=== PATIENT | female | born 1950 | race Caucasian/White ===

== ENCOUNTER → 2016-12-16 | Day surgery (SDC) | payer OTHER ==
[2016-12-09 11:15] VITALS: Ht 152.4 cm; Wt 72.7 kg
[~2016-12-16] VITALS: Ht 152.4 cm; Wt 72.7 kg
[~2016-12-16] MED LIST: 500ML BSS 0.3ML EPI 1:1000PF IRRIG ONE; ACET-1256 PO; ACETAMINOPHEN 325 MG TAB PO PRN; ALBUAER INH; AMVISC PLUS 0.8ML SYRINGE INT OCU ONE; ASPCH81X PO; ATROPINE SULFATE 0.1 MG/ML 5ML SYR IV PRN; BENZ100C84 PO; BRIMONIDINE TART 0.2% OP SOLN PER DROP CHARGE ONE; BSS FLUSH ONE; CHOL200010 PO; CLB200 PO; CLR10 PO; CYCL10TA6 PO; ENDOCOAT 0.85ML SYRINGE INT OCU ONE; EpINEphrine INJ 1MG/ML AMP 1 MG/ML AMP ONE; FLUT0.15 NAE; LACTATED RINGER'S 1000ML 500 ML IV SCH; LIDOCAINE 4% OP SOLN DROP CHARGE ONE; LIDOCAINE 4% OP SOLN DROP CHARGE OPR SCH; LIDOCAINE HCL 1% MPF 2 ML VIAL ONE; LISI5TAB PO; LPR50X PO; MIDAZOLAM HCL 1 MG/ML 2ML VIAL ONE; MOXIFLOXACIN OPH SOLN PER DROP CHARGE ONE; OMEG10007 PO; POVIDONE-IODINE OP SOLN 30 ML BTL ONE; PRED1SUS3 OPR; PREG1CAP28 PO; PRLSR20 PO; PROPARACAINE 0.5% OP SOLN PER DROP CHARGE OPR SCH; TOBRAMYCIN/DEXAMETHASONE OPH OINT PER APPLN CHARGE ONE
[2016-12-16] MEDS: PHENYLEPHRINE HCL 2.5% OP SOLN PER DROP CHARGE OPR SCH ×2 (11:46→11:51)
[2016-12-16] MEDS: TROPICAMIDE 1% OP SOLN PER DROP CHARGE OPR SCH ×2 (11:47→11:52)
[2016-12-16] MEDS: CYCLOPENTOLATE HCL 1% OP SOLN PER DROP CHARGE OPR SCH ×2 (11:48→11:53)
[2016-12-16] MEDS: KETOROLAC 0.5% OP SOLN PER DROP CHARGE OPR SCH ×2 (11:49→11:54)
--- NOTE | 2016-12-16 11:49 | History & Physical Bridge - [place] ---
H&P Re-Evaluation Bridge Note: I have examined the patient, reviewed the History & Physical and in the interval since the performance of the History & Physical I have noted the following changes of clinical significance: No changes noted
[2016-12-16] MEDS: MOXIFLOXACIN OPH SOLN PER DROP CHARGE OPR SCH ×2 (11:50→12:00)
--- NOTE | 2016-12-16 12:40 | Discharge Instructions-SurgCtr ---
Discharge Instructions Date of Service Dec 16, 2016. Visit Reason for Visit: Right Cataract Discharge Discharge Diagnosis / Problem: cataract right eye Discharge Goals Goal(s): Improve function Activity Recommendations Activity Limitations: per Instructions/Follow-up section Lifting Limitations: no more than 5 pounds Anesthesia . Post Anesthesia Instructions: If you have had General Anesthesia or IV Sedation: * Do not drive today. * Resume driving when surgeon permits. * Do not make important decisions or sign legal documents today. * Call surgeon for: 1. Temperature elevations greater than 101 degrees F. 2. Uncontrollable pain. 3. Excessive bleeding. 4. Persistent nausea and vomiting. 5. Medication intolerance (nausea, vomiting or rash). * For nausea and vomiting use only clear liquids such as: tea, soda, bouillon until nausea subsides, then gradually increase diet as tolerated. * If you have any concerns or questions, call your surgeon's office. If physician is unavailable and it is an emergency, call 911 or go to the nearest emergency room. . Instructions / Follow-Up Instructions / Follow-Up ACTIVITY RECOMMENDATIONS: * Light activities * You may walk outside, read, watch television. * Mild irritation and blurred vision are common for the first few days, redness around the white part of the eye is common. MEDICATIONS: Resume previous medications unless instructed otherwise by your surgeon. Eye drops (today and tomorrow): Ofloxacin - one drop in operative eye every 2 hours while awake Prednisolone 1% - one drop in operative eye every 2 hours while awake Ketorolac - one drop in operative eye every 2 hours while awake SPECIAL CARE INSTRUCTIONS: * If any problems or concerns, please call Dr. Krishnan's office at . * Keep plastic shield taped over eye to sleep at night. * Keep plastic shield taped over eye except to administer eye drops. * Keep plastic shield on until office visit the following day. FOLLOW UP VISIT: Follow-up with Dr. Krishnan in the [place] office as scheduled. If not already scheduled, please call the office at . Diet Recommendations Home Diet: resume previous diet Procedures Procedures Performed: Right Cataract Phacoemulsification With Intraocular Lens Implant Pending Studies Studies pending at discharge: no Medical Emergencies . Who to Call and When: Medical Emergencies: If at any time you feel your situation is an emergency, please call 911 immediately. . Non-Emergent Contact Non-Emergency issues call your: Balloon Tester . . "Provider Documentation" section prepared by Oliver Krishnan. .
--- NOTE | 2016-12-16 12:40 | [facility] Post Operative Brief Note ---
Immediate Operative Summary Operative Date Dec 16, 2016. Pre-Operative Diagnosis Cataract right eye Post-Operative Diagnosis same Procedure(s) Performed Right Cataract Phacoemulsification With Intraocular Lens Implant Surgeon Dr Krishnan [employer] Surgeon(s) 0 Estimated Blood Loss 0 Findings cataract right eye Specimens 0 Complication(s) None Disposition Recovery Room / PACU
[2016-12-16 12:41] VITALS: TEMP 36.5
--- NOTE | 2016-12-16 12:48 | Anesthesia Progress Nt - [facility] ---
Anesthesia Post Op Note Date & Time Dec 16, 2016 at 12:47 Vital Signs Vital Signs Past 12 Hours Date Time Temp Pulse Resp B/P Pulse Ox O2 Delivery O2 Flow Rate FiO2 12/16/16 11:42 36.6 71 16 152/92 96 Room Air Notes Mental Status: alert / awake / arousable, participated in evaluation Pt Amnestic to Procedure: Yes Nausea / Vomiting: adequately controlled Pain: adequately controlled Airway Patency, RR, SpO2: stable & adequate BP & HR: stable & adequate Hydration State: stable & adequate Anesthetic Complications: no major complications apparent
[2016-12-16 13:20] VITALS: BP 145/82; PULSE 79; O2SAT 95
--- NOTE | 2016-12-16 14:21 | OPERATIVE REPORT ---
DATE OF OPERATION: 12/16/2016 PREOPERATIVE DIAGNOSIS: Cataract, right eye. POSTOPERATIVE DIAGNOSIS: Cataract, right eye. PROCEDURE: Phacoemulsification cataract extraction with intraocular lens Placement, right eye. SURGEON: Dr. Krishnan. COMPLICATIONS: None. ESTIMATED BLOOD LOSS: None. ANESTHESIA: Topical with sedation. OPERATION AND FINDINGS: After informed consent was obtained in the holding area the patient was wheeled back to the operating room where cardiac monitoring leads and oxygen by nasal cannula was administered by anesthesia. Gentle IV sedation was given, and the patient's right eye was prepped and draped in usual sterile fashion. A wire lid speculum was placed into the right eye and the operating microscope was swung into position. Using 0.12 forceps and a Supersharp blade a paracentesis port was made 3 o'clock hours away from the 9 o'clock position of patient's right eye. 1% non-preserved Lidocaine was then injected into the anterior chamber for anesthesia. A 2.2 mm keratotome blade was then used to make a shelved clear corneal incision at the 9 o'clock position of her right eye. Amvisc was injected into the anterior chamber and a cystotome and Utrata forceps were used to perform a curvilinear capsulorrhexis. BSS on a hydrodissection cannula was used to hydrodissect the lens nucleus away from the capsular bag. The phacoemulsification handpiece was then used in a stop and chop fashion to remove the lens nucleus. The irrigation and aspiration handpiece was then used to remove the residual cortical material. Amvisc was injected into the capsular bag and anterior chamber and a Bausch \T\ Lomb MX60 22.0 Diopter intraocular lens was injected into the capsular bag. Irrigation and aspiration handpiece was used to remove the residual viscoelastic material. The wounds were hydrated and noted to be watertight. The wire lid speculum was removed from the eye. Vigamox, Brimonidine, and TobraDex ointment were placed on the eye and it was shielded. It should be noted that EndoCoat was used during the case to protect the cornea endothelium. DISPOSITION: The patient tolerated the procedure well and was wheeled to the post anesthesia care unit in stable condition. I attest to the content of the Intraoperative Record and any orders documented therein. Any exceptions are noted below. I attest to the content of the Intraoperative Record and any orders documented therein. Any exceptio ns are noted below.
== END | disposition home or self-care (01) ==
LOC: X.SURG 11:30
PROVIDERS: ATTEND Ophthalmology
DX: H26.9 Unspecified cataract (principal); I10 Essential (primary) hypertension; J45.909 Unspecified asthma, uncomplicated; J44.9 Chronic obstructive pulmonary disease, unspecified; E66.9 Obesity, unspecified; Z88.1 Allergy status to other antibiotic agents; Z90.89 Acquired absence of other organs; Z83.3 Family history of diabetes mellitus

== ENCOUNTER → 2017-01-06 | Day surgery (SDC) | payer OTHER ==
[2016-12-31 08:20] VITALS: Ht 152.4 cm; Wt 72.7 kg
[~2017-01-06] VITALS: Ht 152.4 cm; Wt 72.7 kg
[~2017-01-06] MED LIST changes: +LIDOCAINE 4% OP SOLN DROP CHARGE OPL SCH; -LIDOCAINE 4% OP SOLN DROP CHARGE OPR SCH; +PROPARACAINE 0.5% OP SOLN PER DROP CHARGE OPL SCH; -PROPARACAINE 0.5% OP SOLN PER DROP CHARGE OPR SCH
[2017-01-06] MEDS: PHENYLEPHRINE HCL 2.5% OP SOLN PER DROP CHARGE OPL SCH ×2 (09:51→09:56)
[2017-01-06] MEDS: TROPICAMIDE 1% OP SOLN PER DROP CHARGE OPL SCH ×2 (09:52→09:57)
[2017-01-06] MEDS: CYCLOPENTOLATE HCL 1% OP SOLN PER DROP CHARGE OPL SCH ×2 (09:53→09:58)
[2017-01-06] MEDS: KETOROLAC 0.5% OP SOLN PER DROP CHARGE OPL SCH ×2 (09:54→09:59)
[2017-01-06] MEDS: MOXIFLOXACIN OPH SOLN PER DROP CHARGE OPL SCH ×2 (09:55→10:05)
--- NOTE | 2017-01-06 11:04 | Discharge Instructions-SurgCtr ---
Discharge Instructions Date of Service January 06, 2017. Visit Reason for Visit: Cataract Left Eye Discharge Discharge Diagnosis / Problem: cataract left eye Discharge Goals Goal(s): Improve function Activity Recommendations Activity Limitations: per Instructions/Follow-up section Lifting Limitations: no more than 5 pounds Anesthesia . Post Anesthesia Instructions: If you have had General Anesthesia or IV Sedation: * Do not drive today. * Resume driving when surgeon permits. * Do not make important decisions or sign legal documents today. * Call surgeon for: 1. Temperature elevations greater than 101 degrees F. 2. Uncontrollable pain. 3. Excessive bleeding. 4. Persistent nausea and vomiting. 5. Medication intolerance (nausea, vomiting or rash). * For nausea and vomiting use only clear liquids such as: tea, soda, bouillon until nausea subsides, then gradually increase diet as tolerated. * If you have any concerns or questions, call your surgeon's office. If physician is unavailable and it is an emergency, call 911 or go to the nearest emergency room. . Instructions / Follow-Up Instructions / Follow-Up ACTIVITY RECOMMENDATIONS: * Light activities * You may walk outside, read, watch television. * Mild irritation and blurred vision are common for the first few days, redness around the white part of the eye is common. MEDICATIONS: Resume previous medications unless instructed otherwise by your surgeon. Eye drops (today and tomorrow): Ofloxacin - one drop in operative eye every 2 hours while awake Prednisolone 1% - one drop in operative eye every 2 hours while awake SPECIAL CARE INSTRUCTIONS: * If any problems or concerns, please call Dr. Krishnan's office at . * Keep plastic shield taped over eye to sleep at night. * Keep plastic shield taped over eye except to administer eye drops. * Keep plastic shield on until office visit the following day. FOLLOW UP VISIT: Follow-up with Dr. Krishnan in the [place] office as scheduled. If not already scheduled, please call the office at . Diet Recommendations Home Diet: resume previous diet Procedures Procedures Performed: Left Cataract Phacoemulsification With Intraocular Lens Implant Pending Studies Studies pending at discharge: no Medical Emergencies . Who to Call and When: Medical Emergencies: If at any time you feel your situation is an emergency, please call 911 immediately. . Non-Emergent Contact Non-Emergency issues call your: Newspaper Library Manager . . "Provider Documentation" section prepared by Oliver Krishnan. .
--- NOTE | 2017-01-06 11:04 | [facility] Post Operative Brief Note ---
Immediate Operative Summary Operative Date January 06, 2017. Pre-Operative Diagnosis Left Eye Cataract Post-Operative Diagnosis Same Procedure(s) Performed Left Cataract Phacoemulsification With Intraocular Lens Implant Surgeon Dr Krishnan [employer] Surgeon(s) None Estimated Blood Loss 0ml Findings cataract left eye Specimens None Complication(s) None Disposition Recovery Room / PACU
[2017-01-06 11:05] VITALS: TEMP 36.4
[2017-01-06 11:23] VITALS: BP 128/85; PULSE 75; O2SAT 95
--- NOTE | 2017-01-06 11:26 | Anesthesia Progress Nt - [facility] ---
Anesthesia Post Op Note Date & Time January 06, 2017 at 11:26 Vital Signs Pain Intensity: 0 Vital Signs Past 12 Hours Date Time Temp Pulse Resp B/P Pulse Ox O2 Delivery O2 Flow Rate FiO2 01/06/17 11:23 75 18 128/85 95 Room Air 01/06/17 11:05 36.4 70 16 122/81 95 Room Air 01/06/17 09:45 36.4 69 18 150/88 95 Room Air Notes Mental Status: alert / awake / arousable, participated in evaluation Pt Amnestic to Procedure: Yes Nausea / Vomiting: adequately controlled Pain: adequately controlled Airway Patency, RR, SpO2: stable & adequate BP & HR: stable & adequate Hydration State: stable & adequate Anesthetic Complications: no major complications apparent
--- NOTE | 2017-01-06 12:35 | OPERATIVE REPORT ---
DATE OF OPERATION: 01/06/2017 PREOPERATIVE DIAGNOSIS: Cataract, left eye. POSTOPERATIVE DIAGNOSIS: Cataract, left eye. PROCEDURE: Phacoemulsification cataract extraction with intraocular lens placement, left eye. SURGEON: Dr. Krishnan. COMPLICATIONS: None. ESTIMATED BLOOD LOSS: None. ANESTHESIA: Topical with sedation. OPERATION AND FINDINGS: After informed consent was obtained in the holding area the patient was wheeled back to the Operating Room where cardiac monitoring leads and oxygen by nasal cannula was administered by Anesthesia. Gentle IV sedation was given, and the patient's left eye was prepped and draped in usual sterile fashion. A wire lid speculum was placed into the left eye and the operating microscope was swung into position. Using 0.12 forceps and a Supersharp blade a paracentesis port was made 3 o'clock hours away from the 3 o'clock position of patient's left eye. 1% non-preserved Lidocaine was then injected into the anterior chamber for anesthesia. A 2.2 mm keratotome blade was then used to make a shelved clear corneal incision at the 3 o'clock position of her left eye. Amvisc was injected into the anterior chamber and a cystotome and Utrata forceps were used to perform a curvilinear capsulorrhexis. BSS on a hydrodissection cannula was used to hydrodissect the lens nucleus away from the capsular bag. The phacoemulsification handpiece was then used in a stop and chop fashion to remove the lens nucleus. The irrigation and aspiration handpiece was then used to remove the residual cortical material. Amvisc was injected into the capsular bag and anterior chamber and a Bausch \T\ Lomb MX60 22.5 Diopter intraocular lens was injected into the capsular bag. Irrigation and aspiration handpiece was used to remove the residual viscoelastic material. The wounds were hydrated and noted to be watertight. The wire lid speculum was removed from the eye. Vigamox, Brimonidine, and TobraDex ointment were placed on the eye and it was shielded. It should be noted that EndoCoat was used throughout the case to protect the cornea endothelium. DISPOSITION: The patient tolerated the procedure well and was wheeled to the post anesthesia care unit in stable condition. I attest to the content of the Intraoperative Record and any orders documented therein. Any exceptions are noted below. I attest to the content of the Intraoperative Record and any orders documented therein. Any exceptions are noted below. MTDD
== END | disposition home or self-care (01) ==
LOC: X.SURG 09:35
PROVIDERS: ATTEND Ophthalmology
DX: H26.9 Unspecified cataract (principal); I10 Essential (primary) hypertension; J45.909 Unspecified asthma, uncomplicated; E66.9 Obesity, unspecified; Z85.828 Personal history of other malignant neoplasm of skin

== ENCOUNTER → 2017-06-09 | Outpatient (CLI) | payer OTHER ==
[~2017-06-09] MED LIST changes: -500ML BSS 0.3ML EPI 1:1000PF IRRIG ONE; -ACETAMINOPHEN 325 MG TAB PO PRN; -AMVISC PLUS 0.8ML SYRINGE INT OCU ONE; -ATROPINE SULFATE 0.1 MG/ML 5ML SYR IV PRN; -BRIMONIDINE TART 0.2% OP SOLN PER DROP CHARGE ONE; -BSS FLUSH ONE; -ENDOCOAT 0.85ML SYRINGE INT OCU ONE; -EpINEphrine INJ 1MG/ML AMP 1 MG/ML AMP ONE; -LACTATED RINGER'S 1000ML 500 ML IV SCH; -LIDOCAINE 4% OP SOLN DROP CHARGE ONE; -LIDOCAINE 4% OP SOLN DROP CHARGE OPL SCH; -LIDOCAINE HCL 1% MPF 2 ML VIAL ONE; -MIDAZOLAM HCL 1 MG/ML 2ML VIAL ONE; -MOXIFLOXACIN OPH SOLN PER DROP CHARGE ONE; -POVIDONE-IODINE OP SOLN 30 ML BTL ONE; -PROPARACAINE 0.5% OP SOLN PER DROP CHARGE OPL SCH; -TOBRAMYCIN/DEXAMETHASONE OPH OINT PER APPLN CHARGE ONE
[2017-06-09 14:52] LABS: BLOOD UREA NITROGEN 12 mg/dl (7-18); BUN/CREATININE RATIO 15.1 (10-20); CALCIUM 9.1 mg/dl (8.5-10.1); CARBON DIOXIDE 27 mmol/L (21-32); CHLORIDE 105 mmol/L (98-107); CREATININE 0.81 mg/dl (0.60-1.20); GLUCOSE 107 mg/dl (70-99); SODIUM 141 mmol/L (136-145)
[2017-06-09 14:59] LABS: ALT/SGPT 62 U/L (12-78); CHOLESTEROL 259 mg/dl (0-200); CHOLESTEROL/HDL RATIO 5.4; HDL CHOLESTEROL 48 mg/dl; TRIGLYCERIDES 149 mg/dl (0-150); VERY LOW DENSITY LIPOPROT CALC 30 mg/dl
== END | disposition home or self-care (01) ==
LOC: C.LABMFLN 07:50
PROVIDERS: ATTEND Family Medicine
DX: K76.0 Fatty (change of) liver, not elsewhere classified (principal); E78.5 Hyperlipidemia, unspecified; Z87.19 Personal history of other diseases of the digestive system; M15.9 Polyosteoarthritis, unspecified

== ENCOUNTER → 2017-07-23 | Outpatient (CLI) | payer OTHER | END | disposition home or self-care (01) | LOC: C.LABMFLN 12:34 | PROVIDERS: ATTEND Family Medicine | DX: J20.9 Acute bronchitis, unspecified (principal) ==

== ENCOUNTER → 2017-08-07 | Outpatient (CLI) | payer OTHER ==
[2017-08-09 17:35] LABS: BORDETELLA PERTUSSIS SOURCE Nasal Swab
== END | disposition home or self-care (01) ==
LOC: C.LABMFLN 09:48
PROVIDERS: ATTEND Family Medicine
DX: R05 Cough (principal)

== ENCOUNTER → 2017-08-28 | Outpatient (CLI) | payer OTHER ==
[2017-08-28 13:03] LABS: HEMATOCRIT 42.8 % (37-47); HEMOGLOBIN 14.3 g/dL (12.0-16.0); MEAN CELL VOLUME 88.8 fL (80-100); MEAN CORPUSCULAR HEMOGLOBIN 29.7 pg (25-34); MEAN CORPUSCULAR HGB CONC 33.4 g/dl (32-36); MEAN PLATELET VOLUME 10.5 fL (7.4-10.4); PLATELET COUNT 232 K/uL (130-400); RED CELL DISTRIBUTION WIDTH CV 12.7 % (11.5-14.5); RED CELL DISTRIBUTION WIDTH SD 41.4 fL (36.4-46.3); WHITE BLOOD COUNT 4.79 K/uL (4.8-10.8)
[2017-08-28 13:18] LABS: BLOOD UREA NITROGEN 14 mg/dl (7-18); CALCIUM 9.7 mg/dl (8.5-10.1); CARBON DIOXIDE 30 mmol/L (21-32); CREATININE 0.83 mg/dl (0.60-1.20); GLUCOSE 91 mg/dl (70-99); POTASSIUM 4.3 mmol/L (3.5-5.1); SODIUM 139 mmol/L (136-145)
[2017-08-28 13:22] LABS: PTT PATIENT 23.1 SECONDS (21.0-31.0)
== END | disposition home or self-care (01) ==
LOC: C.LABMFLN 09:37
PROVIDERS: ATTEND Family Medicine
DX: Z01.810 Encounter for preprocedural cardiovascular examination (principal)

== ENCOUNTER → 2017-11-10 | Outpatient (CLI) | payer OTHER | END | disposition home or self-care (01) | LOC: C.LABMFLN 10:40 | PROVIDERS: ATTEND Physician Assistant | DX: R35.0 Frequency of micturition (principal) ==